=== PATIENT | male | born 1970 | race Caucasian/White ===

== ENCOUNTER 2019-01-29 08:04 | Emergency (ER) | payer MEDICAID ==
[~2019-01-29] VITALS: Ht 180.3 cm; Wt 95.3 kg
[2019-01-29 09:13] LABS: RED CELL DISTRIBUTION WIDTH 13.3 % (11.5-14.5)
[2019-01-29 09:28] LABS: PLATELET COUNT 98 x10^3mcL (130-400)
[2019-01-29 09:51] LABS: CALCIUM 8.3 mg/dL (8.5-10.1); CARBON DIOXIDE 27.7 mmol/L (21-32); CHLORIDE SERUM 110 mmol/L (98-107); CREATININE SERUM 0.8 mg/dL (0.7-1.3); GFR1 > 60 mL/min; GLUCOSE SERUM 111 mg/dL (74-106); POTASSIUM SERUM 3.7 mmol/L (3.5-5.1); SODIUM SERUM 142 mmol/L (136-145)
[2019-01-29 09:55] LABS: ALKALINE PHOSPHATASE 203 U/L (46-116); ALT/SGPT 108 U/L (16-63); AST/SGOT 91 U/L (15-37); BILIRUBIN TOTAL 2.15 mg/dL (0.20-1.00); TOTAL PROTEIN, SERUM 7.6 g/dL (6.4-8.2)
[2019-01-29 09:56] LABS: ALBUMIN 2.7 g/dL (3.4-5.0)
[2019-01-29 11:58] VITALS: BP 168/92
== END 2019-01-29 11:58 | disposition home or self-care (01) ==
LOC: ED 08:04
PROVIDERS: Emergency Medicine
DX: K72.90 Hepatic failure, unspecified without coma (principal); R94.5 Abnormal results of liver function studies; F12.90 Cannabis use, unspecified, uncomplicated
CPT/HCPCS: 36415; Q0092